=== PATIENT | female | born 1990 | race Caucasian/White ===

== ENCOUNTER 2021-09-18 20:09 | Emergency (ER) | payer MEDICAID, OTHER ==
[~2021-09-18] VITALS: Ht 165.1 cm; Wt 77.1 kg
[2021-09-18 21:07] VITALS: BP_SYST 119
--- NOTE | 2021-09-18 21:07 | NUR ---
Patient complains of vaginal bleeding today. Patient has mild lower abdominal cramping. Patient states , 9 weeks AOG, . Patient was brought in by family to be evaluated. She denies any dysuria hematuria. She has no fever or chills. Patient has no nausea, vomiting or diarrhea. Patient respirations even unlabored.
--- NOTE | 2021-09-18 21:13 | NUR ---
Patient triaged and placed in waiting room. VSS and patient appears in no acute distress at this time. Accompanied by self, awaiting available bed, and MD notified of need for MSE.
--- NOTE | 2021-09-18 21:57 | NUR ---
ER in triage examining patient.
[2021-09-18 22:45] LABS: BASOPHILS % (AUTO) 0.6 % (0.0-2.0); EOSINOPHILS # (AUTO) 0.1 K/uL (0.0-0.4); EOSINOPHILS % (AUTO) 0.9 % (0.0-4.0); HEMATOCRIT 40.7 % (36-48); HEMOGLOBIN 13.6 g/dL (12.0-16.0); LYMPHOCYTES # (AUTO) 1.8 K/uL (1.0-5.5); LYMPHOCYTES % (AUTO) 24.7 % (20.5-51.5); MEAN CORPUSCULAR HEMOGLOBIN 29 pg (27-31); MEAN CORPUSCULAR HGB CONC 33 % (32-36); MEAN CORPUSCULAR VOLUME 87 fL (79.0-98.0); MONOCYTES # (AUTO) 0.3 K/uL (0.0-1.0); MONOCYTES % (AUTO) 4.1 % (1.7-9.3); NEUTROPHILS # (AUTO) 5.1 K/uL (1.8-7.7); NEUTROPHILS % (AUTO) 69.7 % (40.0-70.0); PLATELET COUNT (AUTO) 263 K/uL (130-430); RED BLOOD CELL COUNT(AUTO) 4.67 MIL/uL (4.2-6.2); RED CELL DISTRIBUTION WIDTH 15.6 % (9.0-15.0); WHITE BLOOD COUNT (AUTO) 7.3 K/uL (4.8-10.8)
[2021-09-18 22:56] LABS: CALCIUM 8.6 mg/dL (8.4-11.0); CREATININE 0.54 mg/dL (0.55-1.30); POTASSIUM 3.4 mmol/L (3.5-5.1)
[2021-09-18 23:07] VITALS: BP_SYST 115
--- NOTE | 2021-09-18 23:07 | NUR ---
Patient given written and verbal discharge instructions by Dr Trinidad and verbalizes understanding. ER MD discussed with patient the results and treatment provided. Patient in stable condition. No Rx given. Patient educated on pain management and to follow up with PMD. Opportunity for questions provided and answered Dr Trinidad.
[2021-09-18 23:25] LABS: ALBUMIN 3.6 g/dL (3.4-4.8); TOTAL BILIRUBIN 0.2 mg/dL (0.0-1.0)
== END 2021-09-18 23:07 | disposition home or self-care (01) ==
LOC: SED 20:09
DX: O26.851 Spotting complicating pregnancy, first trimester (principal); Z3A.12 12 weeks gestation of pregnancy
CPT/HCPCS: 36415; 76801; 80053; 84702; 85025; 86886; 86900; 86901; 99284